=== PATIENT | male | born 1980 | race Caucasian/White ===

== ENCOUNTER 2022-06-12 04:54 | Day surgery (SDC) | payer OTHER ==
[2022-06-11 08:56] VITALS: BMI 35.5
[2022-06-12] MEDS ORDERED: KETAMINE HCL 500 MG/10 ML VIAL ONE (06:56)
[2022-06-12] MEDS ORDERED: ePHEDrine SULFATE 50 MG/1 ML AMPULE ONE (07:16)
[2022-06-12] MEDS ORDERED: MIDAZOLAM HCL 2 MG/2 ML SINGLE DOSE VIAL ONE (07:31)
[2022-06-12 08:36] VITALS: TEMP 97.8
[2022-06-12 09:12] VITALS: RESP 17
[2022-06-12] MEDS ORDERED: ONDANSETRON *ODT* 4 MG TABLET SL ONE (09:30)
[2022-06-12 11:13] VITALS: BP 126/91; PULSE 100
== END 2022-06-12 11:25 | disposition home or self-care (01) ==
LOC: JASU-ENDO 04:54
PROVIDERS: ATTEND Student in an Organized Health Care Education/Training Program
PROC: 0DB78ZX Excision of Stomach, Pylorus, Via Natural or Artificial Opening Endoscopic, Diagnostic (ICD-10-PCS; 2022-06-12)
PROC: 0DB68ZX Excision of Stomach, Via Natural or Artificial Opening Endoscopic, Diagnostic (ICD-10-PCS; 2022-06-12)
PROC: 0DB48ZX Excision of Esophagogastric Junction, Via Natural or Artificial Opening Endoscopic, Diagnostic (ICD-10-PCS; 2022-06-12)
PROC: 0DB98ZX Excision of Duodenum, Via Natural or Artificial Opening Endoscopic, Diagnostic (ICD-10-PCS; principal; 2022-06-12 08:00)
DX: K29.50 Unspecified chronic gastritis without bleeding (principal); K21.00 Gastro-esophageal reflux disease with esophagitis, without bleeding; I10 Essential (primary) hypertension
CPT/HCPCS: 88305-TC; 88342-TC; Q0162